=== PATIENT | female | born 1960 | race African-American/Black ===

== ENCOUNTER → 2017-04-28 | Outpatient (CLI) | payer BC ==
[2017-04-28 09:30] LABS: INR 2.08
[2017-04-28 09:31] LABS: PARTIAL THROMBOPLASTIN TIME 43.4 seconds (23.8-35.5)
[2017-04-28 09:32] LABS: BASOPHILS # (AUTO) 0.1 (0.0-0.1); BASOPHILS % 0.7 % (0.0-1.0); EOSINOPHILS # (AUTO) 0.1 (0.0-0.4); EOSINOPHILS % 1.2 % (0.0-6.0); HEMATOCRIT 29.5 % (34.2-44.1); HEMOGLOBIN 10.7 g/dL (12.0-16.0); LYMPHOCYTES # (AUTO) 1.8 (1.0-3.2); LYMPHOCYTES % 24.8 % (18.0-39.1); MEAN CORPUSCULAR HEMOGLOBIN 25.1 pg (28-32); MEAN CORPUSCULAR HGB CONC 36.3 g/dL (31-35); MEAN CORPUSCULAR VOLUME 69.2 fL (81-99); MONOCYTES # (AUTO) 1.3 (0.2-0.8); MONOCYTES % 17.1 % (4.4-11.3); NEUTROPHILS # (AUTO) 4.1 (2.1-6.9); NEUTROPHILS % 55.2 % (38.7-80.0); PLATELET COUNT 144 x10e3/uL (140-360); RED BLOOD COUNT 4.26 x10e6/uL (3.6-5.1); RED CELL DISTRIBUTION WIDTH 18.6 % (11.7-14.4)
[2017-04-28 09:44] LABS: ALBUMIN 1.9 g/dL (3.5-5.0)
[2017-04-28 09:56] LABS: BILIRUBIN,DIRECT 11.6 mg/dL (0.0-5.0)
== END ==
LOC: LAB 08:58
PROVIDERS: ATTEND Internal Medicine
DX: K75.4 Autoimmune hepatitis (principal); B17.2 Acute hepatitis E; B15.9 Hepatitis A without hepatic coma; K74.0 Hepatic fibrosis; R17 Unspecified jaundice; I10 Essential (primary) hypertension; E66.3 Overweight; Z71.3 Dietary counseling and surveillance
CPT/HCPCS: 36415; 80076; 85025; 85610; 85730